=== PATIENT | male | born 1950 | race Caucasian/White ===

== ENCOUNTER 2020-03-14 17:21 | Emergency (ER) | payer MEDICARE ==
--- NOTE | 2020-03-14 18:28 | EDM.PDOC ---
ED HPI GENERAL MEDICAL PROBLEM - General Chief Complaint: General Stated Complaint: swollen neck Time Seen by Provider: 03/14/20 17:45 Source of Information: Reports: Patient History Limitations: Reports: No Limitations - History of Present Illness INITIAL COMMENTS - FREE TEXT/NARRATIVE: Patient is a 70 y/o male who presents with right neck lymphadenopathy that started last night. He also states that he has intermittent metallic taste and numbness/tingling of hands and feet that come and go. No fever, no autoimmune disease, no difficulty breathing/swallowing, no sore throat, no chest pain, no cough, no SOB, no abd pain, and no N/V/D. Right Pain Score (Numeric/FACES): 3 - Related Data Allergies Allergy/AdvReac Type Severity Reaction Status Date / Time No Known Allergies Allergy Verified 03/14/20 17:42 Home Meds: Home Meds Ascorbic Acid [Vitamin C] 500 mg PO DAILY 03/14/20 [History] Aspirin [Ecotrin EC] 81 mg PO DAILY 03/14/20 [History] Cholecalciferol (Vitamin D3) [Vitamin D] 1,000 unit PO BID 03/14/20 [History] Cyclobenzaprine [Flexeril] 1 tab PO TID PRN 03/14/20 [History] Gabapentin [Neurontin] 300 mg PO Q12H 03/14/20 [History] Magnesium Oxide 500 mg PO DAILY 03/14/20 [History] Multivitamin 1 each PO DAILY 03/14/20 [History] [place]-3S/DHA/Epa/Fish Oil [[place]-3 Fish Oil 1,000 mg Sfgl] 1 cap PO DAILY 03/14/20 [History] Omeprazole 20 mg PO DAILY 03/14/20 [History] Sennosides/Docusate Sodium [Senna-Docusate Sodium Tablet] 1 tab PO BID PRN 03/14/20 [History] Tamsulosin [Flomax] 1 cap PO BEDTIME 03/14/20 [History] Zinc 50 mg PO DAILY 03/14/20 [History] glipiZIDE [Glucotrol] 5 mg PO DAILY 03/14/20 [History] lisinopriL [Lisinopril] 5 mg PO DAILY 03/14/20 [History] metFORMIN [Glucophage] 1,000 mg PO BIDMEALS 03/14/20 [History] traMADol [Ultram] 1 tab PO Q6H PRN 03/14/20 [History] valACYclovir [Valtrex] 1 tab PO ASDIRECTED PRN 03/14/20 [History] Past Medical History HEENT History: Reports: Hard of Hearing Endocrine/Metabolic History: Reports: Diabetes, Type II - Past Surgical History Musculoskeletal Surgical History: Reports: Shoulder Surgery Other Musculoskeletal Surgeries/Procedures:: 10/13/19 Right RTC repair. 02/04/20 Right shoulder removal of loose body Social & Family History - Caffeine Use Caffeine Use: Reports: Coffee - Recreational Drug Use Recreational Drug Use: No ED ROS GENERAL - Review of Systems Review Of Systems: See Below Constitutional: Reports: No Symptoms HEENT: Reports: Other (right neck mass) Respiratory: Reports: No Symptoms Cardiovascular: Reports: No Symptoms GI/Abdominal: Reports: No Symptoms : Reports: No Symptoms Musculoskeletal: Reports: No Symptoms Skin: Reports: No Symptoms Neurological: Reports: Numbness, Tingling Psychiatric: Reports: No Symptoms Hematologic/Lymphatic: Reports: Swollen Glands ED EXAM, GENERAL - Physical Exam Exam: See Below Exam Limited By: No Limitations General Appearance: Alert, No Apparent Distress Eye Exam: Bilateral Eye: PERRL Nose: Normal Inspection, Normal Mucosa, No Blood Throat/Mouth: Normal Inspection, Normal Lips, Normal Teeth, Normal Gums, Normal Oropharynx, Normal Voice, No Airway Compromise Head: Atraumatic, Normocephalic Neck: Supple, Full Range of Motion, Lymphadenopathy (R), Other (tender, singular, right-sided lymphadenopathy) Respiratory/Chest: No Respiratory Distress, Lungs Clear, Normal Breath Sounds, No Accessory Muscle Use, Chest Non-Tender Cardiovascular: Normal Peripheral Pulses, Regular Rate, Rhythm, No Edema, No Murmur Peripheral Pulses: 2+: Radial (L), Radial (R) GI/Abdominal: Normal Bowel Sounds, Soft, Non-Tender, No Distention Extremities: Normal Inspection, Normal Range of Motion, Non-Tender, No Pedal Edema, Normal Capillary Refill Neurological: Alert, Oriented, CN II-XII Intact, Normal Cognition, Normal Gait, No Motor/Sensory Deficits Psychiatric: Normal Affect, Normal Mood Skin Exam: Warm, Dry, Intact, Normal Color, No Rash Lymphatic: Adenopathy #1 Interpretation EKG Date: 03/14/20 Time: 17:59 Rhythm: NSR Rate (Beats/Min): 103 [place]: LAD-Left [place] Deviation P-Wave: Present QRS: Normal ST-T: Normal QT: Normal Comparison: NA - No Prior EKG Course - Vital Signs Text/Narrative:: CT HEAD normal. All labs normal except leukocytosis (>17). CT neck with right enlarged lymph node and a right lobe thyroid nodule. Recommend thyroid ultrasound. Will have patient follow up with this PCP sunday for his scheduled apt. Last Recorded V/S: Last Vital Signs Temp 36.5 C 03/14/20 17:35 Pulse 110 H 03/14/20 17:35 Resp 20 03/14/20 17:35 BP 127/79 03/14/20 17:35 Pulse Ox 96 03/14/20 17:35 - Orders/Labs/Meds Orders: Active Orders 24 hr Category Date Time Status EKG Documentation Completion [RC] ASDIRECTED Care 03/14/20 17:44 Active CXR [Chest 2V] [CR] Stat Exams 03/14/20 17:43 Taken Head wo Cont [CT] Stat Exams 03/14/20 18:56 Taken Soft Tissue Neck wo Cont [CT] Stat Exams 03/14/20 18:10 Taken Isolation [COMM] Routine Oth 03/14/20 18:07 Active Labs: Laboratory Tests 03/14/20 03/14/20 03/14/20 Range/Units 17:50 17:50 17:50 WBC 17.1 H D (4.0-11.0) K/uL RBC 5.14 (4.50-6.50) M/uL Hgb 15.9 (13.0-18.0) g/dL Hct 44.2 (40.0-54.0) % MCV 86 (76-96) fL MCH 30.9 (27.0-32.0) pg MCHC 36.0 H (31.0-35.0) g/dL RDW 12.1 (11.0-16.0) % Plt Count 264 (150-400) K/uL MPV 9.2 (6.0-10.0) fL Neut % (Auto) 82.7 H (45.0-70.0) % Lymph % (Auto) 9.4 L (20.0-40.0) % Bibb % (Auto) 7.4 (3.0-10.0) % Eos % (Auto) 0.2 L (1.0-5.0) % Baso % (Auto) 0.3 (0.0-0.5) % Neut # (Auto) 14.14 H (2.00-7.50) K/uL Lymph # (Auto) 1.60 (1.50-4.00) K/uL Bibb # (Auto) 1.26 H (0.20-0.80) K/uL Eos # (Auto) 0.03 L (0.04-0.40) K/uL Baso # (Auto) 0.05 (0.02-0.10) K/uL Sodium 140 (136-145) mmol/L Potassium 4.7 (3.5-5.1) mmol/L Chloride 107 (98-107) mmol/L Carbon Dioxide 22.3 (21.0-32.0) mmol/L Anion Gap 15.4 H (5.0-15.0) mmol/L BUN 23 (8-26) mg/dL Creatinine 1.27 D (0.70-1.30) mg/dL Est Cr Clr Drug Dosing 58.47 mL/min Estimated GFR (MDRD) 56 L (>60) MLS/MIN BUN/Creatinine Ratio 18.1 (6-25) Glucose 189 H (74-100) mg/dL Calcium 9.2 (8.5-10.1) mg/dL Total Bilirubin 0.4 (0.0-1.0) mg/dL AST 12 L (15-37) U/L ALT 30 (12-78) U/L Alkaline Phosphatase 77 (46-116) U/L Troponin I < 0.017 (0.000-0.060) ng/mL Total Protein 7.3 (6.4-8.2) g/dL Albumin 3.9 (3.4-5.0) g/dL Globulin 3.4 (2.2-4.2) g/dL Albumin/Globulin Ratio 1.1 (0.8-2.0) Urine Color Urine Appearance (CLEAR) Urine pH (5.0-8.0) Ur Specific [place] (1.003-1.030) Urine Protein (NEGATIVE) mg/dL Urine Glucose (UA) (NEGATIVE) mg/dL Urine Ketones (NEGATIVE) mg/dL Urine Occult Blood (NEGATIVE) Urine Nitrite (NEGATIVE) Urine Bilirubin (NEGATIVE) Urine Urobilinogen (0.2-1.0) E.U./dL Ur Leukocyte Esterase (NEGATIVE) Urine RBC /HPF Urine WBC /HPF Ur Squamous Epith Cells /HPF Monoscreen Negative (NEGATIVE) SARS CoV-2 RNA Rapid CAMILA 03/14/20 03/14/20 Range/Units 18:10 18:25 WBC (4.0-11.0) K/uL RBC (4.50-6.50) M/uL Hgb (13.0-18.0) g/dL Hct (40.0-54.0) % MCV (76-96) fL MCH (27.0-32.0) pg MCHC (31.0-35.0) g/dL RDW (11.0-16.0) % Plt Count (150-400) K/uL MPV (6.0-10.0) fL Neut % (Auto) (45.0-70.0) % Lymph % (Auto) (20.0-40.0) % Bibb % (Auto) (3.0-10.0) % Eos % (Auto) (1.0-5.0) % Baso % (Auto) (0.0-0.5) % Neut # (Auto) (2.00-7.50) K/uL Lymph # (Auto) (1.50-4.00) K/uL [place] # (Auto) (0.20-0.80) K/uL Eos # (Auto) (0.04-0.40) K/uL Baso # (Auto) (0.02-0.10) K/uL Sodium (136-145) mmol/L Potassium (3.5-5.1) mmol/L Chloride (98-107) mmol/L Carbon Dioxide (21.0-32.0) mmol/L Anion Gap (5.0-15.0) mmol/L BUN (8-26) mg/dL Creatinine (0.70-1.30) mg/dL Est Cr Clr Drug Dosing mL/min Estimated GFR (MDRD) (>60) MLS/MIN BUN/Creatinine Ratio (6-25) Glucose (74-100) mg/dL Calcium (8.5-10.1) mg/dL Total Bilirubin (0.0-1.0) mg/dL AST (15-37) U/L ALT (12-78) U/L Alkaline Phosphatase (46-116) U/L Troponin I (0.000-0.060) ng/mL Total Protein (6.4-8.2) g/dL Albumin (3.4-5.0) g/dL Globulin (2.2-4.2) g/dL Albumin/Globulin Ratio (0.8-2.0) Urine Color Yellow Urine Appearance Clear (CLEAR) Urine pH 6.0 (5.0-8.0) Ur Specific [place] 1.025 (1.003-1.030) Urine Protein Trace H (NEGATIVE) mg/dL Urine Glucose (UA) Negative (NEGATIVE) mg/dL Urine Ketones Negative (NEGATIVE) mg/dL Urine Occult Blood Negative (NEGATIVE) Urine Nitrite Negative (NEGATIVE) Urine Bilirubin Negative (NEGATIVE) Urine Urobilinogen 0.2 (0.2-1.0) E.U./dL Ur Leukocyte Esterase Negative (NEGATIVE) Urine RBC Not seen /HPF Urine WBC Not seen /HPF Ur Squamous Epith Cells Few /HPF Monoscreen (NEGATIVE) SARS CoV-2 RNA Rapid CAMILA Negative Departure - Departure Time of Disposition: 19:30 Disposition: Home, Self-Care 01 Condition: Good Clinical Impression: Lymphadenopathy - Discharge Information *PRESCRIPTION DRUG MONITORING PROGRAM REVIEWED*: Not Applicable *COPY OF PRESCRIPTION DRUG MONITORING REPORT IN PATIENT CANDELARIO: Not Applicable Referrals: PCP,None [Primary Care Provider] - Forms: ED Department Discharge Sepsis Event Note (ED) - Evaluation Sepsis Screening Result: No Definite Risk - Focused Exam Vital Signs: Vital Signs Temp Pulse Resp BP Pulse Ox 03/14/20 17:35 36.5 C 110 H 20 127/79 96 - My Orders Last 24 Hours: My Active Orders 03/14/20 17:43 CXR [Chest 2V] [CR] Stat 03/14/20 17:44 EKG Documentation Completion [RC] ASDIRECTED 03/14/20 18:07 Isolation [COMM] Routine 03/14/20 18:10 Soft Tissue Neck wo Cont [CT] Stat 03/14/20 18:56 Head wo Cont [CT] Stat - Assessment/Plan Last 24 Hours: My Active Orders 03/14/20 17:43 CXR [Chest 2V] [CR] Stat 03/14/20 17:44 EKG Documentation Completion [RC] ASDIRECTED 03/14/20 18:07 Isolation [COMM] Routine 03/14/20 18:10 Soft Tissue Neck wo Cont [CT] Stat 03/14/20 18:56 Head wo Cont [CT] Stat
--- NOTE | 2020-03-15 08:38 | CT ---
DATE OF SERVICE: 03/14/20 CLINICAL DATA: numbness/tingling UNENHANCED BRAIN CT: Multislice axial acquisition was performed. No priors. There is mild diffuse atrophy. There are periventricular lucencies bilaterally consistent with small vessel ischemic change. No masses or mass effect. No intracranial hemorrhage. No evidence of acute or subacute infarct. No osseous abnormalities. IMPRESSION: NO ACUTE INTRACRANIAL ABNORMALITIES. JOB [facility][id number] [facility]
--- NOTE | 2020-03-15 08:41 | CR ---
DATE OF SERVICE: 03/14/20 CLINICAL DATA: swollen gland PA AND LATERAL CHEST: No priors. The heart size is normal. The lungs are clear. No pneumothorax. No pleural effusions. There is degenerative disc disease throughout the thoracic spine. No evidence of acute intrathoracic disease. [id number] [facility]
--- NOTE | 2020-03-15 08:48 | CT ---
DATE OF SERVICE: 03/14/20 CLINICAL DATA: swelling to neck UNENHANCED NECK CT Multislice acquisition through the neck without IV contrast was performed. Axial images and sagittal and coronal reformations are reviewed. No priors. There is extensive beam-hardening and streak artifact produced by the patient's metallic dental work obscuring adjacent structures. The visualized paranasal sinuses are clear. The parotid glands are symmetric and appear normal. The submandibular glands are symmetric and appear normal. There is a 13 mm low density lesion within the right lobe of the thyroid. Thyroid ultrasound is recommended. There is a 1.7 cm soft tissue density mass superficial to the right sternocleidomastoid muscle. There is adjacent fat stranding and infiltration. This probably represents an enlarged reactive lymph node. The possibility of neoplasm, metastatic adenopathy or lymphoma should be considered. The soft tissues are otherwise unremarkable. The vascular structures are unremarkable. The pharynx, larynx, and airway are unremarkable. The visualized lung apices are clear. [id number] [facility]
== END 2020-03-14 19:45 | disposition home or self-care (01) ==
LOC: LB.ED 17:21
DX: R59.0 Localized enlarged lymph nodes (principal); E11.9 Type 2 diabetes mellitus without complications; Z79.899 Other long term (current) drug therapy; Z20.828 Contact with and (suspected) exposure to other viral communicable diseases
CPT/HCPCS: 36415; 70450; 70490; 71046; 80053; 81001; 84484; 85025; 86308; 87430; 87804; 87804-59; 93005; 99284-25; U0002

== ENCOUNTER 2021-10-05 16:11 | Emergency (ER) | payer MEDICARE ==
[2021-10-05] MEDS ORDERED: Erythromycin Base 0.5% Ophth Oint 3.5 GM Tube ONE (17:00)
[2021-10-05] MEDS: Erythromycin Base 0.5% Ophth Oint 3.5 GM Tube EYEBOTH ONE (17:27)
[2021-10-06] MEDS: Erythromycin Base 0.5% Ophth Oint 3.5 GM Tube ONE (08:12)
== END 2021-10-05 17:30 | disposition home or self-care (01) ==
LOC: LB.ED 16:11
DX: S05.01XA Injury of conjunctiva and corneal abrasion without foreign body, right eye, initial encounter (principal); E11.9 Type 2 diabetes mellitus without complications; N40.0 Benign prostatic hyperplasia without lower urinary tract symptoms; Z79.82 Long term (current) use of aspirin; Z79.84 Long term (current) use of oral hypoglycemic drugs; Z79.899 Other long term (current) drug therapy
CPT/HCPCS: 99282; 99283; A9270-GY

== ENCOUNTER 2021-10-13 14:46 | Emergency (ER) | payer MEDICARE ==
[2021-10-13] MEDS: Tetracaine HCl/PF 0.5% 4 ML Bottle EYERT ONE (15:10)
== END 2021-10-13 15:25 | disposition home or self-care (01) ==
LOC: LB.ED 14:46
DX: T15.91XA Foreign body on external eye, part unspecified, right eye, initial encounter (principal); E11.9 Type 2 diabetes mellitus without complications; Z91.030 Bee allergy status; Z79.899 Other long term (current) drug therapy; Z79.82 Long term (current) use of aspirin; Z79.84 Long term (current) use of oral hypoglycemic drugs
CPT/HCPCS: 99283